=== PATIENT | male | born 1955 | race Caucasian/White ===

== ENCOUNTER 2021-02-28 07:14 | Emergency (ER) | payer BC ==
[~2021-02-28] VITALS: Ht 180.3 cm; Wt 141.3 kg
[2021-02-28] MEDS ORDERED: LISI2.5T2 PO (07:24)
[2021-02-28] MEDS ORDERED: METO37.5 PO (07:24)
[2021-02-28] MEDS ORDERED: NS 1,000 ML IV ONE (07:40)
[2021-02-28 08:09] LABS: BASO % 0.4 % (0.0-1.0); EOS % 0.1 % (0.0-3.0); HEMATOCRIT 46.2 % (42.0-52.0); HEMOGLOBIN 14.7 g/dl (13.5-17.5); LYMPH # 1.1 10^3/uL (1.5-5.0); LYMPH % 9.8 % (24.0-44.0); MEAN CORPUSCULAR HEMOGLOBIN 29.7 pg (27.0-33.0); MEAN CORPUSCULAR HGB CONC 31.8 g/dl (32.0-36.5); MEAN CORPUSCULAR VOLUME 93.3 fl (80.0-96.0); MONO # 0.6 10^3/uL (0.0-0.8); MONO % 5.4 % (2.0-8.0); NEUTROPHILS # 9.3 10^3/uL (1.5-8.5); PLATELET COUNT, AUTOMATED 327 10^3/uL (150-450); RED BLOOD COUNT 4.95 10^6/uL (4.30-6.10)
[2021-02-28 08:27] LABS: ALBUMIN 4.1 GM/DL (3.2-5.2); BILIRUBIN,DIRECT 0.1 MG/DL (0.0-0.2); BILIRUBIN,TOTAL 0.4 MG/DL (0.2-1.0)
[2021-02-28] MEDS ORDERED: KETOROLAC 30 MG/ML 1ML VIAL As Ordered ONE (08:29)
[2021-02-28] MEDS ORDERED: KETOROLAC 30 MG/ML 1ML VIAL IV ONE (08:30)
--- NOTE | 2021-02-28 09:40 | REPVR ---
PROCEDURE INFORMATION: Exam: CT Abdomen And Pelvis Without Contrast Exam date and time: 02/28/2021 7:40 AM Age: 65 years old Clinical indication: Abdominal pain and other: Low back; Prior surgery; Surgery date: 6+ months; Surgery type: Lithotripsy, PT doesn't remember which side; Additional info: Low back pain, abd pain, hemturia, h/o kidney stones TECHNIQUE: Imaging protocol: Computed tomography of the abdomen and pelvis without contrast. Radiation optimization: All CT scans at this facility use at least one of these dose optimization techniques: automated exposure control; mA and/or kV adjustment per patient size (includes targeted exams where dose is matched to clinical indication); or iterative reconstruction. COMPARISON: No relevant prior studies available. FINDINGS: Lungs: A pleural based 5 mm nodule is seen in the right lower lobe on axial image 10 a 3 mm parenchymal opacity is seen about a cm from the posterior pleural surface of the left lower lobe on axial image 32.The visualized portions of the lung bases are otherwise normal. Mediastinal space: A small hiatal hernia is present. Liver: There are no focal liver lesions present, no mass is identified. Gallbladder and bile ducts: The gallbladder is normal. Pancreas: The pancreas is normal. Spleen: The spleen is normal. Adrenal glands: The adrenal glands are normal. Kidneys and ureters: There are multiple nonobstructing bilateral renal collecting system calcifications. There is mild right perinephric edema and hydronephrosis with a 25 mm long calculus in the distal right ureter with diameter of about 5 mm on axial image 140. There is moderate perinephric stranding of the left kidney with a 4 x 6 mm oval calculus at the left ureteropelvic junction on axial image 90 and coronal image 67. Stomach and bowel: There has been previous surgery in the region of the right colon, possibly with removal of the cecum and a portion of the right colon with creation of an ileal right colostomy. There is no mass effect or edema surrounding this region nor evidence of proximal bowel obstruction. Appendix: No evidence of appendicitis. Intraperitoneal space: Unremarkable. No free air. No significant fluid collection. Vasculature: Unremarkable. No abdominal aortic aneurysm. Lymph nodes: There are multiple nonspecific nonpathologic but prominent lymph nodes in the retroperitoneum. There are no retroperitoneal lymph nodes of pathologic dimensions. Urinary bladder: There are dependent calculi in an otherwise normal appearing bladder suggesting that there have been stones passed, perhaps related to the distal right ureteral process representing more than 1 stone. Reproductive: The prostate gland demonstrates nonspecific parenchymal calcifications. The prostate is moderately enlarged measuring 47 x 60 x 60 mm. Bones/joints: There are mild degenerative changes of the hip joints. There are diffuse enthesopathic changes consistent with benign diffuse idiopathic skeletal hyperostosis (DISH).The spine demonstrates moderate degenerative changes at multiple levels. There is moderate spinal stenosis greatest at L4-L5. Soft tissues: There is a fat filled left inguinal hernia. IMPRESSION: 1. There has been previous surgery in the region of the right colon, possibly with removal of the cecum and a portion of the right colon with creation of an ileal right colostomy. There is no mass effect or edema surrounding this region nor evidence of proximal bowel obstruction. 2. A pleural based 5 mm nodule is seen in the right lower lobe on axial image 10 a 3 mm parenchymal opacity is seen about a cm from the posterior pleural surface of the left lower lobe on axial image 32.The visualized portions of the lung bases are otherwise normal. 3. There are diffuse enthesopathic changes consistent with benign diffuse idiopathic skeletal hyperostosis (DISH).The spine demonstrates moderate degenerative changes at multiple levels. There is moderate spinal stenosis greatest at L4-L5. 4. There are multiple nonobstructing bilateral renal collecting system calcifications. 5. There is mild right perinephric edema and hydronephrosis with a 25 mm long calculus in the distal right ureter with diameter of about 5 mm on axial image 140. 6. There is moderate perinephric stranding of the left kidney with a 4 x 6 mm oval calculus at the left ureteropelvic junction on axial image 90 and coronal image 67. 7. There are dependent calculi in an otherwise normal appearing bladder suggesting that there have been stones passed, perhaps related to the distal right ureteral process representing more than 1 stone. RECOMMENDATION: 1. Urologic consultation for bilateral kidney obstruction. 2. As per Fleischner Society guidelines for follow-up and management of pulmonary nodules: For patients at low risk (minimal or absent history of smoking and of other known risk factors), no follow-up needed. For patients at high risk (history of smoking or of other known risk factors), recommend optional follow-up chest CT at 12 months; if unchanged, no further follow-up needed. Electronically signed by: Basil Delaney On 02/28/2021 09:39:42 AM
[2021-02-28] MEDS ORDERED: FLOM0.4C39 PO (11:27)
[2021-02-28] MEDS ORDERED: CIPR-249 PO (11:27)
[2021-02-28] MEDS ORDERED: HYDR-3713 PO (11:27)
[2021-02-28] MEDS ORDERED: METO1TAB33 PO (11:46)
[2021-02-28] MEDS ORDERED: LISI20TA35 PO (11:46)
[2021-02-28 11:51] VITALS: BP 181/83
--- NOTE | 2021-03-04 11:57 | ED PDOC ---
Post-Departure Follow-Up certified letter sent regarding radiology report Yaritza Moss MD Mar 04, 2021 11:57
== END 2021-02-28 11:59 | disposition home or self-care (01) ==
LOC: M ED 07:14
DX: N20.2 Calculus of kidney with calculus of ureter (principal); M19.90 Unspecified osteoarthritis, unspecified site; M48.061 Spinal stenosis, lumbar region without neurogenic claudication; R91.8 Other nonspecific abnormal finding of lung field; M48.10 Ankylosing hyperostosis [Forestier], site unspecified; E66.9 Obesity, unspecified; I10 Essential (primary) hypertension; Z79.899 Other long term (current) drug therapy; Z87.891 Personal history of nicotine dependence; Z87.442 Personal history of urinary calculi; Z82.49 Family history of ischemic heart disease and other diseases of the circulatory system
CPT/HCPCS: 36415; 74176; 80047; 80076; 81001; 83690; 85025; 96361; 96374; 99284; J1885